=== PATIENT | male | born 1995 | race Caucasian/White ===

== ENCOUNTER 2019-02-05 12:19 | Emergency (ER) | payer OTHER ==
[~2019-02-05] VITALS: Ht 188 cm; Wt 86.2 kg
[2019-02-05] MEDS ORDERED: NKM (12:33)
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
[2019-02-05 12:40] VITALS: BP 140/85
[2019-02-05] MEDS ORDERED: IBUPROFEN600 MG ORAL (12:53)
[2019-02-05] MEDS ORDERED: ROBAXIN500 MG PO (12:53)
[2019-02-05] MEDS ORDERED: LIDOCAINE700 M1 TP (12:53)
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
[2019-02-05 12:58] VITALS: BP 135/77
--- NOTE | 2019-02-05 12:59 | NUR ---
ER DISCHARGE NOTE: Patient is cleared to be discharged per ERMD, pt is aox4, on room air, with stable vital signs. pt was given dc and prescription instructions, pt was able to verbalize understanding, pt id band removed without complications. pt is able to ambulate with steady gait. pt took all belongings.
[2019-02-06] MEDS ORDERED: TYLENOL EXTRA500 MG ORAL (15:29)
== END 2019-02-05 13:00 | disposition home or self-care (01) ==
LOC: EMR 13:00
DX: M25.512 Pain in left shoulder (principal); V43.52XA Car driver injured in collision with other type car in traffic accident, initial encounter; Y92.410 Unspecified street and highway as the place of occurrence of the external cause
CPT/HCPCS: 99282

== ENCOUNTER 2019-02-06 14:43 | Emergency (ER) | payer OTHER ==
[~2019-02-06] VITALS: Ht 188 cm; Wt 97.5 kg
[~2019-02-06 14:43] MED LIST: IBUPROFEN600 MG ORAL; LIDOCAINE700 M1 TP; NKM; ROBAXIN500 MG PO
[2019-02-06] MEDS ORDERED: TYLENOL EXTRA500 MG ORAL (15:29)
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
[2019-02-06 15:35] VITALS: BP 147/85
[2019-02-06 15:37] VITALS: BP 147/85
== END 2019-02-06 15:37 | disposition home or self-care (01) ==
LOC: EMR 15:20
DX: F07.81 Postconcussional syndrome (principal)
CPT/HCPCS: 99282